=== PATIENT | female | born 2000 | race Caucasian/White ===

== ENCOUNTER 2020-06-28 02:20 | Inpatient (IN) | payer OTHER ==
[~2020-06-28] VITALS: Ht 160 cm; Wt 72.6 kg
[~2020-06-28 02:20] MED LIST: FOLIC ACID1 MG; PRENATAL TABLE1 EAC1; TYLENOL EXTRA500 MG
--- NOTE | 2020-06-28 03:54 | NUR ---
0255- SWABBED BOTH NARES FOR RAPID COVID TEST
--- NOTE | 2020-06-28 06:00 | PR ---
[facility] [address] [place] [address] Signed Progress Notes IP Datetime Report Generated by CPN: 06/28/2020 06:00 PROGRESS NOTES: [id number] Impression: Normal Progression of Labor; Reassuring Heart Rate Procedures: Artificial ROM; Sterile Vag Exam Plan: Continue Present Management; Anticipate Vaginal Delivery Informed Consent Obtain: Vaginal Delivery VITAL SIGNS: [id number] Vital Signs: Reviewed; Within Normal Limits EXAM: [id number] Dilatation: 8.0 Effacement: 90 Station: 0 Contractions: Irregular MEMBRANES: [id number] ROM Note: amniosure swab done FETUS A: [id number] FHR Baseline: 140 Variability: Moderate 6-25bpm Accelerations: 15X15 Decelerations: None FHR Category: Category I Presentation: Vertex Comments on Fetus A: No evidence of metabolic acodosis FETUS B: [id number] Signing Physician: Bartolome Zarate DO Copies: ~ *Electronically Signed* 06/28/20 0600 BARTOLOME ZARATE DO PATIENT NAME: RUBIN LOYOLA PROGRESS NOTE DATE OF : [birth year] PHYSICIAN: BARTOLOME ZARATE DO [facility] #: [id number] REPORT IS CONFIDENTIAL AND NOT TO BE RELEASED WITHOUT AUTHORIZATION
--- NOTE | 2020-06-28 07:52 | PR ---
[facility] [address] [place], [place] [address] Signed Progress Notes IP Datetime Report Generated by CPCarola: 06/28/2020 07:52 PROGRESS NOTES: [id number] Impression: Normal Progression of Labor; Reassuring Heart Rate Procedures: Sterile Vag Exam Plan: Anesthesia Consult Informed Consent Obtain: Vaginal Delivery Other Informed Consents: intrathecal VITAL SIGNS: [id number] Vital Signs: Reviewed; Within Normal Limits EXAM: [id number] Dilatation: 9.5 Effacement: 95 Station: -1 Contractions: Irregular MEMBRANES: [id number] ROM Note: amniosure swab done Comments: Pt seen and examined. Doing well, but very uncomfortable w/ contractions. Reports involuntary pushing. Desires neuroaxial anesthesia. On exam, 9.5 zero station. Anesthesia notified and en route. FETUS A: [id number] FHR Baseline: 140 Variability: Moderate 6-25bpm Accelerations: 15X15 Decelerations: None FHR Category: Category I Presentation: Vertex Comments on Fetus A: No evidence of metabolic acodosis FETUS B: [id number] Signing Physician: Bartolome Zarate DO Copies: ~ *Electronically Signed* 06/28/20 0752 BARTOLOME ZARATE DO PATIENT NAME: RUBIN LOYOLA PROGRESS NOTE DATE OF : 98 PHYSICIAN: BARTOLOME ZARATE DO RPT #: [id number] REPORT IS CONFIDENTIAL AND NOT TO BE RELEASED WITHOUT AUTHORIZATION
--- NOTE | 2020-06-29 08:45 | PR ---
[facility] [address] [facility] [address] [place], [place] [address] Signed PP Progress Notes Datetime Report Generated by CPN: 06/29/2020 06:32 SUBJECTIVE: [id number] Pain: Within Normal Limits Flatus: Yes Bowel Movement: No Vital Signs: [id number] Vital Signs: Reviewed; Within Normal Limits Cardiovascular: Normal Respiratory: Normal Abdomen/Uterus: Normal Lochia: Normal Vulva/Perineum: Not Done Breasts: Not Done CVA Tenderness: Normal Extremities: Normal Incision: Not Applicable Progress: Normal Exam Comments: Fundus firm U-2 nontender IMPRESSION/PLAN/PROCEDURES: [id number] Impression: Normal Progression Plan: Discharge Progress Notes: Pt seen and examined. Doing well. Ambulating, voiding, and tolerating full diet. Pain and lochia minimal. Breastfeding well. No fevers/chills. Unsure of plans for contraception but likely vasectomy. Desires d/c home today. No other questions or concerns. Reviewed d/c instructions in detail. All questions answered Signing Physician: Bartolome Zarate DO Copies: ~ *Electronically Signed* 06/29/20 0632 BARTOLOME ZARATE DO PATIENT NAME: RUBIN LOYOLA PROGRESS NOTE DATE OF : 98 PHYSICIAN: BARTOLOME ZARATE DO RPT #: [id number] REPORT IS CONFIDENTIAL AND NOT TO BE RELEASED WITHOUT AUTHORIZATION
== END 2020-06-29 10:50 | disposition home or self-care (01) | DRG 807 ==
LOC: FBCO 02:20 → FBC 02:48 → MS 13:00 → FBC 13:54
PROVIDERS: ADMIT Obstetrics & Gynecology; ATTEND Obstetrics & Gynecology
PROC: 10907ZC Drainage of Amniotic Fluid, Therapeutic from Products of Conception, Via Natural or Artificial Opening (ICD-10-PCS; principal; 2020-06-28)
PROC: 10E0XZZ Delivery of Products of Conception, External Approach (ICD-10-PCS; 2020-06-28)
PROC: 0KQM0ZZ Repair Perineum Muscle, Open Approach (ICD-10-PCS; 2020-06-28)
PROC: 00HU33Z Insertion of Infusion Device into Spinal Canal, Percutaneous Approach (ICD-10-PCS; 2020-06-28)
PROC: 3E0R3BZ Introduction of Anesthetic Agent into Spinal Canal, Percutaneous Approach (ICD-10-PCS; 2020-06-28)
DX: O99.284 Endocrine, nutritional and metabolic diseases complicating childbirth (principal); Z37.0 Single live birth; E02 Subclinical iodine-deficiency hypothyroidism; Z3A.37 37 weeks gestation of pregnancy; O76 Abnormality in fetal heart rate and rhythm complicating labor and delivery; O70.1 Second degree perineal laceration during delivery; Z20.822 Contact with and (suspected) exposure to COVID-19; Z79.899 Other long term (current) drug therapy
CPT/HCPCS: 85027; A9270; C9803; J2001; J2590; J7121; U0003